=== PATIENT | female | born 1945 | race Caucasian/White ===

== ENCOUNTER 2020-05-30 11:11 | Inpatient (IN) | payer OTHER ==
[2020-05-30 12:38] LABS: BASO % 0.6 % (0-2.0); EOS % 0.6 % (0-4.5); HEMATOCRIT 37.6 % (32.4-45.2); MCHC 31.9 g/dl (32.0-36.0); MEAN CELL VOLUME 81.5 fl (80-96); MEAN PLT VOLUME 8.7 fl (7.5-11.1); MONO % 6.9 % (3.8-10.2); NEUT % 77.9 % (42.8-82.8); PLATELET COUNT 129 K/MM3 (134-434); RBC 4.62 M/mm3 (3.60-5.2); RDW 14.3 % (11.6-15.6); WHITE BLOOD COUNT 5.1 K/mm3 (4.0-10.0)
[2020-05-30 12:52] LABS: CHLORIDE 108 mmol/L (98-107); SODIUM 141 mmol/L (136-145)
[2020-05-30 12:54] LABS: CALCIUM 8.3 mg/dL (8.5-10.1)
[2020-05-30 12:55] LABS: ALBUMIN 3.6 g/dl (3.4-5.0); ANION GAP 6 MMOL/L (8-16); BLOOD UREA NITROGEN 16.4 mg/dL (7-18); CO2 26 mmol/L (21-32); GLUCOSE,RANDOM 153 mg/dL (74-106)
[2020-05-30 12:59] LABS: CREATININE 0.8 mg/dL (0.55-1.3); SGOT/AST 33 U/L (15-37); SGPT/ALT 26 U/L (13-61)
[2020-05-30 13:00] LABS: BILIRUBIN,TOTAL 0.2 mg/dL (0.2-1); TOT PROT 6.6 g/dl (6.4-8.2)
[2020-05-30 13:01] LABS: ALK PHOS 47 U/L (45-117)
[2020-05-30] MEDS ORDERED: DEXAMETHASONE SOD PHOSPHATE 10 MG/1 ML VIAL IVPUSH ONE (14:09)
[2020-05-30] MEDS ORDERED: DEXAMETHASONE SOD PHOSPHATE 10 MG/1 ML VIAL ONE (14:10)
[2020-05-31] MEDS: INSULIN SLIDING SCALE (NOVOLOG) 1 VIAL SQ SCH ×3 (06:22→18:59)
[2020-05-31 08:19] LABS: BASO % 0.2 % (0-2.0); HEMATOCRIT 37.6 % (32.4-45.2); HEMOGLOBIN 12.5 GM/dL (10.7-15.3); LYMPH % 23.6 % (8-40); MCH 26.6 pg (25.7-33.7); MCHC 33.1 g/dl (32.0-36.0); MEAN CELL VOLUME 80.2 fl (80-96); MEAN PLT VOLUME 8.2 fl (7.5-11.1); NEUT % 66.2 % (42.8-82.8); PLATELET COUNT 143 K/MM3 (134-434); RBC 4.69 M/mm3 (3.60-5.2); RDW 14.6 % (11.6-15.6); WHITE BLOOD COUNT 4.3 K/mm3 (4.0-10.0)
[2020-05-31 08:31] LABS: CHLORIDE 107 mmol/L (98-107); SODIUM 141 mmol/L (136-145)
[2020-05-31 08:33] LABS: ALBUMIN 3.3 g/dl (3.4-5.0); ANION GAP 5 MMOL/L (8-16); BLOOD UREA NITROGEN 17.9 mg/dL (7-18); CALCIUM 8.8 mg/dL (8.5-10.1); CO2 29 mmol/L (21-32); GLUCOSE,RANDOM 191 mg/dL (74-106)
[2020-05-31 08:36] LABS: CREATININE 0.7 mg/dL (0.55-1.3); SGOT/AST 29 U/L (15-37); SGPT/ALT 27 U/L (13-61)
[2020-05-31 08:38] LABS: BILIRUBIN,TOTAL 0.3 mg/dL (0.2-1)
[2020-05-31 08:39] LABS: ALK PHOS 49 U/L (45-117)
[2020-05-31] MEDS ORDERED: ENOXAPARIN NA (PORCINE) 40 MG/0.4 ML DISP.SYRIN SQ ONE (09:27)
[2020-05-31] MEDS: ENOXAPARIN NA (PORCINE) 40 MG/0.4 ML DISP.SYRIN SQ SCH (10:23)
[2020-06-01] MEDS: ROSUVASTATIN CA 20 MG TABLET (FP) PO SCH ×2 (00:51→22:11)
[2020-06-01] MEDS: INSULIN SLIDING SCALE (NOVOLOG) 1 VIAL SQ SCH ×5 (01:03→22:14)
[2020-06-01 09:20] LABS: BASO % 0.3 % (0-2.0); EOS % 0.2 % (0-4.5); HEMATOCRIT 35.5 % (32.4-45.2); HEMOGLOBIN 11.9 GM/dL (10.7-15.3); MCH 26.7 pg (25.7-33.7); MCHC 33.5 g/dl (32.0-36.0); MEAN CELL VOLUME 79.7 fl (80-96); MEAN PLT VOLUME 8.6 fl (7.5-11.1); MONO % 6.5 % (3.8-10.2); PLATELET COUNT 159 K/MM3 (134-434); RBC 4.45 M/mm3 (3.60-5.2)
[2020-06-01 10:02] LABS: CALCIUM 8.3 mg/dL (8.5-10.1)
[2020-06-01 10:05] LABS: CREATININE 0.6 mg/dL (0.55-1.3)
[2020-06-01 10:07] LABS: BILIRUBIN,TOTAL 0.3 mg/dL (0.2-1); TOT PROT 6.5 g/dl (6.4-8.2)
[2020-06-01] MEDS: ENOXAPARIN NA (PORCINE) 40 MG/0.4 ML DISP.SYRIN SQ SCH (10:07)
[2020-06-01] MEDS: DEXAMETHASONE SOD PHOSPHATE 4 MG/1 ML VIAL IVPUSH SCH (11:46)
[2020-06-01] MEDS ORDERED: REMDESIVIR 200 MG in SODIUM CHLORIDE 250 ML IVPB ONE (13:00)
[2020-06-01] MEDS ORDERED: THROMBIN (BOVINE) 5,000 UNIT VIAL TP ONE (15:30)
[2020-06-02] MEDS: INSULIN SLIDING SCALE (NOVOLOG) 1 VIAL SQ SCH ×4 (06:46→22:04)
[2020-06-02] MEDS: DEXAMETHASONE SOD PHOSPHATE 4 MG/1 ML VIAL IVPUSH SCH (10:11)
[2020-06-02] MEDS: ENOXAPARIN NA (PORCINE) 40 MG/0.4 ML DISP.SYRIN SQ SCH (10:12)
[2020-06-02] MEDS: REMDESIVIR 100 MG in SODIUM CHLORIDE 250 ML IVPB SCH (13:36)
[2020-06-02] MEDS: MELATONIN 5 MG TABLETS PO PRN (21:56)
[2020-06-02] MEDS: ROSUVASTATIN CA 20 MG TABLET (FP) PO SCH (21:56)
[2020-06-03] MEDS: INSULIN SLIDING SCALE (NOVOLOG) 1 VIAL SQ SCH ×4 (06:38→21:07)
[2020-06-03] MEDS ORDERED: INSULIN (NOVOLOG) ASPART 100 UNITS/ML 10ML VIAL ONE (06:52)
[2020-06-03 07:43] LABS: BASO % 0.1 % (0-2.0); EOS % 0.1 % (0-4.5); HEMATOCRIT 35.6 % (32.4-45.2); HEMOGLOBIN 11.7 GM/dL (10.7-15.3); MCH 26.5 pg (25.7-33.7); MCHC 32.9 g/dl (32.0-36.0); MEAN CELL VOLUME 80.6 fl (80-96); MEAN PLT VOLUME 8.4 fl (7.5-11.1); MONO % 11.5 % (3.8-10.2); NEUT % 65.3 % (42.8-82.8); PLATELET COUNT 176 K/MM3 (134-434); RBC 4.42 M/mm3 (3.60-5.2); RDW 14.2 % (11.6-15.6); WHITE BLOOD COUNT 5.4 K/mm3 (4.0-10.0)
[2020-06-03 08:07] LABS: ALBUMIN 2.9 g/dl (3.4-5.0); BLOOD UREA NITROGEN 16.4 mg/dL (7-18)
[2020-06-03 08:11] LABS: CREATININE 0.6 mg/dL (0.55-1.3)
[2020-06-03 08:12] LABS: BILIRUBIN,TOTAL 0.3 mg/dL (0.2-1)
[2020-06-03 08:14] LABS: TOT PROT 6.6 g/dl (6.4-8.2)
[2020-06-03] MEDS: ENOXAPARIN NA (PORCINE) 40 MG/0.4 ML DISP.SYRIN SQ SCH (11:23)
[2020-06-03] MEDS: DEXAMETHASONE SOD PHOSPHATE 4 MG/1 ML VIAL IVPUSH SCH (11:23)
[2020-06-03] MEDS: REMDESIVIR 100 MG in SODIUM CHLORIDE 250 ML IVPB SCH (13:52)
[2020-06-03] MEDS: ROSUVASTATIN CA 20 MG TABLET (FP) PO SCH (21:07)
[2020-06-03] MEDS: MELATONIN 5 MG TABLETS PO PRN (21:07)
[2020-06-04] MEDS: INSULIN SLIDING SCALE (NOVOLOG) 1 VIAL SQ SCH ×4 (06:28→21:35)
[2020-06-04] MEDS: DEXAMETHASONE SOD PHOSPHATE 4 MG/1 ML VIAL IVPUSH SCH (09:44)
[2020-06-04] MEDS: LISINOPRIL 5 MG TABLET PO SCH (09:45)
[2020-06-04] MEDS: ENOXAPARIN NA (PORCINE) 40 MG/0.4 ML DISP.SYRIN SQ SCH (09:45)
[2020-06-04] MEDS: REMDESIVIR 100 MG in SODIUM CHLORIDE 250 ML IVPB SCH (13:00)
[2020-06-04] MEDS: ROSUVASTATIN CA 20 MG TABLET (FP) PO SCH (21:29)
[2020-06-05] MEDS: INSULIN SLIDING SCALE (NOVOLOG) 1 VIAL SQ SCH ×4 (06:48→21:56)
[2020-06-05] MEDS: LISINOPRIL 5 MG TABLET PO SCH (09:13)
[2020-06-05] MEDS: DEXAMETHASONE SOD PHOSPHATE 4 MG/1 ML VIAL IVPUSH SCH (09:13)
[2020-06-05] MEDS: ENOXAPARIN NA (PORCINE) 40 MG/0.4 ML DISP.SYRIN SQ SCH (09:14)
[2020-06-05] MEDS ORDERED: INSULIN (NOVOLOG) ASPART 100 UNITS/ML 10ML VIAL ONE ×2 (11:32→18:21)
[2020-06-05] MEDS: REMDESIVIR 100 MG in SODIUM CHLORIDE 250 ML IVPB SCH (12:56)
[2020-06-05] MEDS: ROSUVASTATIN CA 20 MG TABLET (FP) PO SCH (21:56)
[2020-06-06] MEDS: INSULIN SLIDING SCALE (NOVOLOG) 1 VIAL SQ SCH ×4 (06:35→21:06)
[2020-06-06 07:06] LABS: BASO % 0.1 % (0-2.0); EOS % 0.1 % (0-4.5); HEMATOCRIT 38.4 % (32.4-45.2); HEMOGLOBIN 12.8 GM/dL (10.7-15.3); LYMPH % 20.2 % (8-40); MCH 27.6 pg (25.7-33.7); MCHC 33.3 g/dl (32.0-36.0); MEAN CELL VOLUME 82.9 fl (80-96); MEAN PLT VOLUME 8.2 fl (7.5-11.1); NEUT % 70.6 % (42.8-82.8); PLATELET COUNT 250 K/MM3 (134-434); RBC 4.63 M/mm3 (3.60-5.2); WHITE BLOOD COUNT 7.1 K/mm3 (4.0-10.0)
[2020-06-06 07:31] LABS: ALBUMIN 2.8 g/dl (3.4-5.0)
[2020-06-06 07:32] LABS: BLOOD UREA NITROGEN 18.3 mg/dL (7-18)
[2020-06-06 07:35] LABS: CREATININE 0.7 mg/dL (0.55-1.3)
[2020-06-06 07:36] LABS: TOT PROT 6.5 g/dl (6.4-8.2)
[2020-06-06 07:37] LABS: BILIRUBIN,TOTAL 0.4 mg/dL (0.2-1)
[2020-06-06] MEDS: ENOXAPARIN NA (PORCINE) 40 MG/0.4 ML DISP.SYRIN SQ SCH (09:33)
[2020-06-06] MEDS: DEXAMETHASONE SOD PHOSPHATE 4 MG/1 ML VIAL IVPUSH SCH (09:33)
[2020-06-06] MEDS: LISINOPRIL 5 MG TABLET PO SCH (09:34)
[2020-06-06] MEDS ORDERED: INSULIN (NOVOLOG) ASPART 100 UNITS/ML 10ML VIAL ONE ×2 (10:34→16:25)
[2020-06-06] MEDS ORDERED: LISINOPRIL 5 MG TABLET PO SCH (14:09)
[2020-06-06] MEDS ORDERED: LISINOPRIL 5 MG TABLET PO ONE ×2 (14:09→14:13)
[2020-06-06] MEDS: amLODIPine BESYLATE 2.5 MG TABLET (FP) PO SCH (14:20)
[2020-06-06 19:44] VITALS: BMI 28.5
[2020-06-06] MEDS: ROSUVASTATIN CA 20 MG TABLET (FP) PO SCH (21:06)
[2020-06-07] MEDS: INSULIN SLIDING SCALE (NOVOLOG) 1 VIAL SQ SCH ×4 (07:08→21:31)
[2020-06-07] MEDS: DEXAMETHASONE SOD PHOSPHATE 4 MG/1 ML VIAL IVPUSH SCH (09:36)
[2020-06-07] MEDS: LISINOPRIL 5 MG TABLET PO SCH (09:36)
[2020-06-07] MEDS: amLODIPine BESYLATE 2.5 MG TABLET (FP) PO SCH (09:37)
[2020-06-07] MEDS: MELATONIN 5 MG TABLETS PO PRN (21:30)
[2020-06-07] MEDS: ROSUVASTATIN CA 20 MG TABLET (FP) PO SCH (21:30)
[2020-06-08] MEDS: INSULIN SLIDING SCALE (NOVOLOG) 1 VIAL SQ SCH ×4 (06:14→22:56)
[2020-06-08] MEDS: DEXAMETHASONE SOD PHOSPHATE 4 MG/1 ML VIAL IVPUSH SCH (09:22)
[2020-06-08] MEDS: LISINOPRIL 5 MG TABLET PO SCH (09:22)
[2020-06-08] MEDS: amLODIPine BESYLATE 2.5 MG TABLET (FP) PO SCH (09:22)
[2020-06-08] MEDS: metFORMIN HCL 500 MG TABLET (FP) PO SCH (22:48)
[2020-06-08] MEDS: ROSUVASTATIN CA 20 MG TABLET (FP) PO SCH (22:48)
[2020-06-08] MEDS ORDERED: INSULIN (LEVEMIR) 100 UNITS/ML UNITS SQ ONE (23:00)
[2020-06-09] MEDS: metFORMIN HCL 500 MG TABLET (FP) PO SCH ×2 (06:15→16:39)
[2020-06-09] MEDS: INSULIN SLIDING SCALE (NOVOLOG) 1 VIAL SQ SCH ×4 (06:15→21:53)
[2020-06-09 06:57] LABS: BASO % 0.1 % (0-2.0); EOS % 0.5 % (0-4.5); HEMOGLOBIN 13.1 GM/dL (10.7-15.3); LYMPH % 11.1 % (8-40); MCH 27.6 pg (25.7-33.7); MCHC 32.7 g/dl (32.0-36.0); MEAN CELL VOLUME 84.2 fl (80-96); MEAN PLT VOLUME 8.3 fl (7.5-11.1); MONO % 8.8 % (3.8-10.2); NEUT % 79.5 % (42.8-82.8); PLATELET COUNT 284 K/MM3 (134-434); RBC 4.74 M/mm3 (3.60-5.2); RDW 14.5 % (11.6-15.6); WHITE BLOOD COUNT 10.2 K/mm3 (4.0-10.0)
[2020-06-09 07:10] LABS: CALCIUM 9.7 mg/dL (8.5-10.1)
[2020-06-09 07:11] LABS: ALBUMIN 2.9 g/dl (3.4-5.0); BLOOD UREA NITROGEN 24.6 mg/dL (7-18)
[2020-06-09 07:15] LABS: BILIRUBIN,TOTAL 0.2 mg/dL (0.2-1)
[2020-06-09] MEDS: LISINOPRIL 5 MG TABLET PO SCH (09:25)
[2020-06-09] MEDS: DEXAMETHASONE SOD PHOSPHATE 4 MG/1 ML VIAL IVPUSH SCH (09:25)
[2020-06-09] MEDS: amLODIPine BESYLATE 2.5 MG TABLET (FP) PO SCH (09:27)
[2020-06-09] MEDS ORDERED: INSULIN (NOVOLOG) ASPART 100 UNITS/ML 10ML VIAL ONE ×2 (16:47→20:58)
[2020-06-09] MEDS: ROSUVASTATIN CA 20 MG TABLET (FP) PO SCH (21:52)
[2020-06-09] MEDS: INSULIN (LEVEMIR) 100 UNITS/ML UNITS SQ SCH (21:52)
[2020-06-10] MEDS: metFORMIN HCL 500 MG TABLET (FP) PO SCH ×2 (06:12→16:56)
[2020-06-10] MEDS: INSULIN SLIDING SCALE (NOVOLOG) 1 VIAL SQ SCH ×3 (06:12→16:56)
[2020-06-10] MEDS ORDERED: sitaGLIPtin PHOSPHATE 50 MG TABLET PO SCH (07:00)
[2020-06-10] MEDS: LISINOPRIL 5 MG TABLET PO SCH (10:42)
[2020-06-10] MEDS: DEXAMETHASONE SOD PHOSPHATE 4 MG/1 ML VIAL IVPUSH SCH (10:43)
[2020-06-10] MEDS: amLODIPine BESYLATE 2.5 MG TABLET (FP) PO SCH (10:43)
[2020-06-10] MEDS: INSULIN (LEVEMIR) 100 UNITS/ML UNITS SQ SCH (12:16)
[2020-06-10 19:07] VITALS: BP 166/91; PULSE 101; TEMP 98.1
== END 2020-06-10 21:27 | disposition home or self-care (01) | DRG 177 ==
LOC: EDBD 11:11 → JER 11:11 → OBSVTOIN 12:10 → JERBED 12:10 → J6WEST-2 06-01 00:36 → J4W 06-01 17:34
PROVIDERS: ADMIT Internal Medicine; ATTEND Internal Medicine
PROC: XW033E5 Introduction of Remdesivir Anti-infective into Peripheral Vein, Percutaneous Approach, New Technology Group 5 (ICD-10-PCS; 2020-06-01)
PROC: XW13325 Transfusion of Convalescent Plasma (Nonautologous) into Peripheral Vein, Percutaneous Approach, New Technology Group 5 (ICD-10-PCS; principal; 2020-06-02)
DX: U07.1 COVID-19 (principal); J96.01 Acute respiratory failure with hypoxia; E66.9 Obesity, unspecified; Z68.28 Body mass index [BMI] 28.0-28.9, adult; E11.9 Type 2 diabetes mellitus without complications; Z79.84 Long term (current) use of oral hypoglycemic drugs; R55 Syncope and collapse; I10 Essential (primary) hypertension
CPT/HCPCS: 36415; 36430; 70450-TC; 71045-TC-FY; 80053; 80061; 82550; 82553; 82607; 82728; 82746; 82962; 83036; 83721; 84443; 84484; 85025; 85379; 86140; 86769; 86850; 86900; 86901; 87804; 93005; 93010; 93306-TC; 93880-TC; 94761; 97116-GP; 97162-GP; 99285-25; C9399; C9803; J1100; P9017; U0003; U0005

== ENCOUNTER 2021-12-30 12:48 | Inpatient (IN) | payer OTHER ==
[2021-12-30] MEDS ORDERED: ACETAMINOPHEN 1000 MG/100 ML BAG IVPB ONE (14:36)
[2021-12-30] MEDS ORDERED: ACETAMINOPHEN INJECTION 100 ML IVPB ONE (15:15)
[2021-12-30 15:51] LABS: BASO % 0.5 % (0-2.0); HEMATOCRIT 36.4 % (32.4-45.2); HEMOGLOBIN 11.7 GM/dL (10.7-15.3); LYMPH % 12.2 % (8-40); MCH 26.7 pg (25.7-33.7); MCHC 32.2 g/dl (32.0-36.0); MEAN CELL VOLUME 83.1 fl (80-96); MEAN PLT VOLUME 8.5 fl (7.5-11.1); MONO % 10.8 % (3.8-10.2); NEUT % 76.5 % (42.8-82.8); PLATELET COUNT 187 10^3/uL (134-434); RBC 4.38 M/mm3 (3.60-5.2); RDW 13.7 % (11.6-15.6); WHITE BLOOD COUNT 9.2 K/mm3 (4.0-10.0)
[2021-12-30 16:02] LABS: ACTIVATED PTT 28.5 SECONDS (25.2-36.5); INR 1.13 (0.83-1.09)
[2021-12-30 16:20] LABS: ALBUMIN 3.8 g/dl (3.4-5.0); CALCIUM 9.4 mg/dL (8.5-10.1)
[2021-12-30 16:23] LABS: CREATININE 1.1 mg/dL (0.55-1.3)
[2021-12-30 16:25] LABS: BILIRUBIN,TOTAL 0.5 mg/dL (0.2-1); TOT PROT 7.4 g/dl (6.4-8.2)
[2021-12-31] MEDS ORDERED: ACETAMINOPHEN 325 MG TABLET (FP) PO PRN (06:30)
[2021-12-31] MEDS ORDERED: metFORMIN HCL 500 MG TABLET (FP) ONE (07:11)
[2021-12-31] MEDS: metFORMIN HCL 500 MG TABLET (FP) PO SCH (07:12)
[2021-12-31 07:24] LABS: BASO % 0.6 % (0-2.0); EOS % 0.2 % (0-4.5); HEMATOCRIT 36.9 % (32.4-45.2); HEMOGLOBIN 11.9 GM/dL (10.7-15.3); LYMPH % 8.7 % (8-40); MCH 26.7 pg (25.7-33.7); MCHC 32.2 g/dl (32.0-36.0); MEAN CELL VOLUME 82.8 fl (80-96); MEAN PLT VOLUME 7.9 fl (7.5-11.1); MONO % 9.2 % (3.8-10.2); NEUT % 81.3 % (42.8-82.8); PLATELET COUNT 175 10^3/uL (134-434); RBC 4.46 M/mm3 (3.60-5.2); RDW 13.9 % (11.6-15.6); WHITE BLOOD COUNT 10.1 K/mm3 (4.0-10.0)
[2021-12-31 07:50] LABS: CALCIUM 9.3 mg/dL (8.5-10.1)
[2021-12-31 07:51] LABS: BLOOD UREA NITROGEN 19.8 mg/dL (7-18)
[2021-12-31 07:54] LABS: CREATININE 0.7 mg/dL (0.55-1.3)
[2021-12-31] MEDS ORDERED: REMDESIVIR 200 MG in SODIUM CHLORIDE 250 ML IVPB ONE ×2 (08:35→10:00)
[2021-12-31] MEDS ORDERED: methylPREDNISolone NA SUCC 40 MG/1 ML VIAL IVPB ONE (08:35)
[2021-12-31] MEDS ORDERED: LISINOPRIL 10 MG TABLET ONE (10:12)
[2021-12-31] MEDS ORDERED: methylPREDNISolone NA SUCC 40 MG/1 ML VIAL ONE (10:13)
[2021-12-31] MEDS: LISINOPRIL 10 MG TABLET PO SCH (10:40)
[2021-12-31] MEDS ORDERED: ROSUVASTATIN CA 20 MG TABLET PO SCH (22:00)
[2022-01-01] MEDS ORDERED: metFORMIN HCL 500 MG TABLET (FP) ONE ×2 (05:50→08:08)
[2022-01-01] MEDS ORDERED: ACETAMINOPHEN 325 MG TABLET (FP) ONE (05:59)
[2022-01-01] MEDS: metFORMIN HCL 500 MG TABLET (FP) PO SCH (08:13)
[2022-01-01] MEDS ORDERED: FLU VACC QS2022-23(6MOS UP)/PF 60 MCG/0.5 ML SYRINGE IM ONE (09:00)
[2022-01-01] MEDS ORDERED: PNEUMOC 20-VAL CONJ-DIP CRM/PF 0.5 ML SYRINGE IM ONE (09:00)
[2022-01-01] MEDS ORDERED: LISINOPRIL 10 MG TABLET ONE (09:39)
[2022-01-01] MEDS: LISINOPRIL 10 MG TABLET PO SCH (09:54)
[2022-01-01] MEDS: REMDESIVIR 100 MG in SODIUM CHLORIDE 250 ML IVPB SCH (10:38)
[2022-01-02 07:32] LABS: BASO % 0.3 % (0-2.0); EOS % 1.5 % (0-4.5); HEMATOCRIT 35.2 % (32.4-45.2); HEMOGLOBIN 11.7 GM/dL (10.7-15.3); LYMPH % 21.5 % (8-40); MCH 27.4 pg (25.7-33.7); MCHC 33.1 g/dl (32.0-36.0); MEAN CELL VOLUME 82.6 fl (80-96); MEAN PLT VOLUME 7.8 fl (7.5-11.1); MONO % 8.2 % (3.8-10.2); NEUT % 68.5 % (42.8-82.8); PLATELET COUNT 200 10^3/uL (134-434); RBC 4.26 M/mm3 (3.60-5.2); RDW 14.2 % (11.6-15.6); WHITE BLOOD COUNT 9.7 K/mm3 (4.0-10.0)
[2022-01-02] MEDS ORDERED: metFORMIN HCL 500 MG TABLET (FP) ONE (08:03)
[2022-01-02] MEDS: metFORMIN HCL 500 MG TABLET (FP) PO SCH (08:07)
[2022-01-02] MEDS: REMDESIVIR 100 MG in SODIUM CHLORIDE 250 ML IVPB SCH (09:14)
[2022-01-02] MEDS: LISINOPRIL 10 MG TABLET PO SCH (09:14)
[2022-01-03] MEDS: metFORMIN HCL 500 MG TABLET (FP) PO SCH (06:07)
[2022-01-03 08:36] LABS: BASO % 0.4 % (0-2.0); EOS % 2.4 % (0-4.5); HEMATOCRIT 36.2 % (32.4-45.2); HEMOGLOBIN 11.7 GM/dL (10.7-15.3); LYMPH % 31.1 % (8-40); MCH 26.9 pg (25.7-33.7); MCHC 32.5 g/dl (32.0-36.0); MEAN CELL VOLUME 82.9 fl (80-96); MEAN PLT VOLUME 7.8 fl (7.5-11.1); MONO % 10.4 % (3.8-10.2); NEUT % 55.7 % (42.8-82.8); PLATELET COUNT 205 10^3/uL (134-434); RBC 4.36 M/mm3 (3.60-5.2); WHITE BLOOD COUNT 7.1 K/mm3 (4.0-10.0)
[2022-01-03 09:07] LABS: BLOOD UREA NITROGEN 24.8 mg/dL (7-18); CREATININE 0.8 mg/dL (0.55-1.3)
[2022-01-03 09:09] LABS: CALCIUM 9.2 mg/dL (8.5-10.1)
[2022-01-03] MEDS: LISINOPRIL 10 MG TABLET PO SCH (10:13)
[2022-01-03] MEDS: REMDESIVIR 100 MG in SODIUM CHLORIDE 250 ML IVPB SCH (10:13)
[2022-01-04] MEDS: metFORMIN HCL 500 MG TABLET (FP) PO SCH (06:11)
[2022-01-04 07:44] LABS: BASO % 0.5 % (0-2.0); HEMATOCRIT 36.1 % (32.4-45.2); HEMOGLOBIN 11.6 GM/dL (10.7-15.3); LYMPH % 25.5 % (8-40); MCH 26.4 pg (25.7-33.7); MCHC 32.1 g/dl (32.0-36.0); MEAN CELL VOLUME 82.4 fl (80-96); MEAN PLT VOLUME 7.6 fl (7.5-11.1); MONO % 8.6 % (3.8-10.2); NEUT % 62.4 % (42.8-82.8); PLATELET COUNT 221 10^3/uL (134-434); RBC 4.38 M/mm3 (3.60-5.2); RDW 13.8 % (11.6-15.6)
[2022-01-04 07:54] LABS: BLOOD UREA NITROGEN 21.2 mg/dL (7-18); CALCIUM 9.1 mg/dL (8.5-10.1)
[2022-01-04 07:58] LABS: CREATININE 0.7 mg/dL (0.55-1.3)
[2022-01-04] MEDS: LISINOPRIL 10 MG TABLET PO SCH (10:03)
[2022-01-04] MEDS: ZOLPIDEM TARTRATE 5 MG TABLET PO PRN (21:41)
[2022-01-05] MEDS: metFORMIN HCL 500 MG TABLET (FP) PO SCH (06:49)
[2022-01-05] MEDS: LISINOPRIL 10 MG TABLET PO SCH (09:09)
[2022-01-05] MEDS: DEXAMETHASONE SOD PHOSPHATE 4 MG/1 ML VIAL IVPUSH SCH (13:00)
[2022-01-05] MEDS ORDERED: DEXAMETHASONE SOD PHOSPHATE 4 MG/1 ML VIAL IVPUSH SCH (15:00)
[2022-01-05 15:31] VITALS: BMI 25.0
[2022-01-05] MEDS: ZOLPIDEM TARTRATE 5 MG TABLET PO PRN (21:44)
[2022-01-06 01:35] VITALS: RESP 18
[2022-01-06] MEDS: metFORMIN HCL 500 MG TABLET (FP) PO SCH (06:15)
[2022-01-06 08:00] LABS: BASO % 0.3 % (0-2.0); EOS % 0.2 % (0-4.5); HEMATOCRIT 34.4 % (32.4-45.2); HEMOGLOBIN 11.5 GM/dL (10.7-15.3); LYMPH % 22.2 % (8-40); MCH 27.2 pg (25.7-33.7); MCHC 33.5 g/dl (32.0-36.0); MEAN CELL VOLUME 81.4 fl (80-96); MEAN PLT VOLUME 7.4 fl (7.5-11.1); MONO % 7.6 % (3.8-10.2); NEUT % 69.7 % (42.8-82.8); PLATELET COUNT 237 10^3/uL (134-434); RBC 4.23 M/mm3 (3.60-5.2); RDW 13.5 % (11.6-15.6); WHITE BLOOD COUNT 7.8 K/mm3 (4.0-10.0)
[2022-01-06 08:54] LABS: CALCIUM 9.6 mg/dL (8.5-10.1)
[2022-01-06 08:56] LABS: BLOOD UREA NITROGEN 21.2 mg/dL (7-18)
[2022-01-06 08:59] LABS: CREATININE 0.8 mg/dL (0.55-1.3)
[2022-01-06] MEDS: LISINOPRIL 10 MG TABLET PO SCH (09:15)
[2022-01-06] MEDS: DEXAMETHASONE SOD PHOSPHATE 4 MG/1 ML VIAL IVPUSH SCH (09:16)
[2022-01-06] MEDS ORDERED: ENOXAPARIN NA (PORCINE) 40 MG/0.4 ML DISP.SYRIN SQ SCH (10:00)
[2022-01-06 13:37] VITALS: PULSE 83; TEMP 97.7
[2022-01-06 13:39] VITALS: BP 110/69
== END 2022-01-06 18:27 | disposition home or self-care (01) | DRG 178 ==
LOC: JER 12:48 → JERBED 17:17 → OBSVTOIN 17:17 → J4S 01-03 02:55
PROVIDERS: ADMIT Family Medicine; ATTEND Family Medicine
PROC: XW033E5 Introduction of Remdesivir Anti-infective into Peripheral Vein, Percutaneous Approach, New Technology Group 5 (ICD-10-PCS; principal; 2021-12-31)
PROC: 3E0333Z Introduction of Anti-inflammatory into Peripheral Vein, Percutaneous Approach (ICD-10-PCS; 2022-01-05)
DX: U07.1 COVID-19 (principal); G95.89 Other specified diseases of spinal cord; E78.5 Hyperlipidemia, unspecified; I10 Essential (primary) hypertension; E11.9 Type 2 diabetes mellitus without complications; F79 Unspecified intellectual disabilities; R09.02 Hypoxemia; W18.30XA Fall on same level, unspecified, initial encounter; Y92.098 Other place in other non-institutional residence as the place of occurrence of the external cause
CPT/HCPCS: 0241U-QW; 36415; 70450-TC; 70551-TC; 71045-TC-FY; 71275-TC; 72125-TC; 72128-TC; 72131-TC; 72141-TC; 80048; 80053; 82962; 84484; 85025; 85379; 85610; 85730; 86140; 90677; 93005; 93010; 93970-TC; 94761; 97116-GP; 97161-GP; 99285-25; C9399; G0008; Q2036; Q9967

== ENCOUNTER 2023-06-01 12:19 | Inpatient (IN) | payer OTHER ==
[2023-06-01 13:38] LABS: VENOUS BASE EXCESS -2.8 mmol/L (-2-2); VENOUS O2 SATURATION 38.7 % (70-80); VENOUS PCO2 48.5 mmHg (38-52); VENOUS PH 7.309 (7.310-7.410)
[2023-06-01 13:38] LABS: BASO % 0.3 % (0-2.0); HEMATOCRIT 36.3 % (32.4-45.2); HEMOGLOBIN 11.9 GM/dL (10.7-15.3); LYMPH % 11.7 % (8-40); MCH 26.6 pg (25.7-33.7); MCHC 32.7 g/dl (32.0-36.0); MEAN CELL VOLUME 81.3 fl (80-96); MEAN PLT VOLUME 7.7 fl (7.5-11.1); MONO % 14.7 % (3.8-10.2); NEUT % 73.3 % (42.8-82.8); PLATELET COUNT 184 10^3/uL (134-434); RBC 4.46 M/mm3 (3.60-5.2); RDW 14.6 % (11.6-15.6); WHITE BLOOD COUNT 7.1 K/mm3 (4.0-10.0)
[2023-06-01 13:51] LABS: INR 1.17 (0.83-1.09); PROTHROMBIN TIME (PATIENT) 13.6 SEC (9.7-13.0)
[2023-06-01 13:52] LABS: ACTIVATED PTT 29.2 SECONDS (25.2-36.5)
[2023-06-01 14:00] LABS: POTASSIUM 4.6 mmol/L (3.5-5.1)
[2023-06-01] MEDS: SODIUM CHLORIDE 1,633 ML IV ONE (14:02)
[2023-06-01 14:03] LABS: ALBUMIN 3.7 g/dl (3.4-5.0)
[2023-06-01 14:04] LABS: CALCIUM 10.2 mg/dL (8.5-10.1)
[2023-06-01 14:05] LABS: BLOOD UREA NITROGEN 20.5 mg/dL (7-18)
[2023-06-01 14:07] LABS: CREATININE 1.4 mg/dL (0.55-1.3)
[2023-06-01 14:09] LABS: BILIRUBIN,TOTAL 0.5 mg/dL (0.2-1); TOT PROT 7.6 g/dl (6.4-8.2)
[2023-06-01] MEDS ORDERED: ACETAMINOPHEN 325 MG TABLET (FP) ONE (15:30)
[2023-06-01] MEDS ORDERED: LIDOCAINE 4% PATCH TP ONE (15:31)
[2023-06-01] MEDS: ACETAMINOPHEN 325 MG TABLET (FP) PO ONE (15:48)
[2023-06-01] MEDS: LIDOCAINE 5% TOPICAL PATCH TP ONE (15:48)
[2023-06-01 18:06] LABS: EPI CELLS >36 /uL (0-25.1); HYALINE CASTS 16 /uL (0-3.1); PH,URINE 5.5 (5.0-8.0); URINE APPEARANCE CLOUDY; URINE BACTERIA 1 /uL (0-1359); URINE BILIRUBIN NEGATIVE (NEGATIVE); URINE COLOR YELLOW; URINE GLUCOSE (UA) NEGATIVE (NEGATIVE); URINE KETONE TRACE (NEGATIVE); URINE LEUK ESTERASE NEGATIVE (NEGATIVE); URINE NITRITE NEGATIVE (NEGATIVE); URINE PROTEIN 2+ (NEGATIVE); URINE RBC 5 /uL (0-23.9)
[2023-06-01] MEDS ORDERED: DOCUSATE SODIUM 100 MG CAPSULE (FP) PO PRN (19:38)
[2023-06-01 20:31] LABS: MAGNESIUM 2.1 mg/dL (1.8-2.4)
[2023-06-01 20:34] LABS: PHOSPHOROUS 3.9 mg/dL (2.5-4.9)
[2023-06-01 20:48] LABS: URINE WBC 89.1 /uL (0-25.8)
[2023-06-01] MEDS: SODIUM CHLORIDE 0.45% 1,000 ML IV SCH (21:24)
[2023-06-01] MEDS: INSULIN ASPART SLIDING SCALE (NOVOLOG) 1 VIAL SQ SCH (21:25)
[2023-06-01] MEDS: LIDOCAINE PATCH REMOVAL MC SCH (22:54)
[2023-06-01] MEDS ORDERED: ACETAMINOPHEN INJECTION 100 ML IVPB ONE (23:25)
[2023-06-01] MEDS: ACETAMINOPHEN 1000 MG/100 ML BAG IVPB ONE (23:48)
[2023-06-02] MEDS ORDERED: LEVALBUTEROL HCL 0.63 MG/3 ML VIAL.NEB. IH ONE (01:37)
[2023-06-02] MEDS ORDERED: guaiFENesin/D-METHORPHAN HB 10 ML UNIT-DOSE CUPS ONE (01:37)
[2023-06-02] MEDS: guaiFENesin/D-METHORPHAN TAB.ER.12H PO ONE (01:43)
[2023-06-02] MEDS: LEVALBUTEROL HCL 0.63 MG/3 ML VIAL.NEB. IH ONE (01:43)
[2023-06-02 03:29] VITALS: BMI 23.2
[2023-06-02 06:53] LABS: BASO % 0.6 % (0-2.0); EOS % 2.5 % (0-4.5); HEMATOCRIT 32.6 % (32.4-45.2); HEMOGLOBIN 10.6 GM/dL (10.7-15.3); LYMPH % 20.1 % (8-40); MCH 26.7 pg (25.7-33.7); MCHC 32.6 g/dl (32.0-36.0); MEAN CELL VOLUME 81.9 fl (80-96); MONO % 17.1 % (3.8-10.2); NEUT % 59.7 % (42.8-82.8); PLATELET COUNT 151 10^3/uL (134-434); RBC 3.98 M/mm3 (3.60-5.2); RDW 14.1 % (11.6-15.6); WHITE BLOOD COUNT 5.2 K/mm3 (4.0-10.0)
[2023-06-02 07:34] LABS: POTASSIUM 3.7 mmol/L (3.5-5.1)
[2023-06-02 07:37] LABS: CALCIUM 8.7 mg/dL (8.5-10.1)
[2023-06-02 07:41] LABS: CREATININE 0.9 mg/dL (0.55-1.3)
[2023-06-02 07:42] LABS: BILIRUBIN,TOTAL 0.4 mg/dL (0.2-1)
[2023-06-02 07:43] LABS: TOT PROT 6.4 g/dl (6.4-8.2)
[2023-06-02 08:09] LABS: N-TERMINAL BNP 386.6 pg/ml (5-450)
[2023-06-02] MEDS ORDERED: ZOLPIDEM TARTRATE 5 MG TABLET PO PRN (08:24)
[2023-06-02] MEDS: LISINOPRIL 10 MG TABLET PO SCH (09:54)
[2023-06-02] MEDS: guaiFENesin/D-METHORPHAN TAB.ER.12H PO SCH (09:55)
[2023-06-02] MEDS: ACETAMINOPHEN 1000 MG/100 ML BAG IVPB ONE (21:53)
[2023-06-02] MEDS: ROSUVASTATIN CA 20 MG TABLET PO SCH (21:54)
[2023-06-02] MEDS: MELATONIN 5 MG TABLETS PO PRN (21:55)
[2023-06-03 07:17] LABS: BASO % 0.5 % (0-2.0); HEMATOCRIT 34.4 % (32.4-45.2); HEMOGLOBIN 11.1 GM/dL (10.7-15.3); LYMPH % 25.6 % (8-40); MCH 26.3 pg (25.7-33.7); MCHC 32.2 g/dl (32.0-36.0); MEAN CELL VOLUME 81.8 fl (80-96); MEAN PLT VOLUME 7.8 fl (7.5-11.1); MONO % 15.9 % (3.8-10.2); PLATELET COUNT 167 10^3/uL (134-434); RBC 4.21 M/mm3 (3.60-5.2); RDW 14.2 % (11.6-15.6); WHITE BLOOD COUNT 5.7 K/mm3 (4.0-10.0)
[2023-06-03 08:11] LABS: POTASSIUM 3.7 mmol/L (3.5-5.1)
[2023-06-03 08:16] LABS: ALBUMIN 3.1 g/dl (3.4-5.0); CALCIUM 9.4 mg/dL (8.5-10.1)
[2023-06-03 08:17] LABS: BLOOD UREA NITROGEN 11.7 mg/dL (7-18)
[2023-06-03 08:19] LABS: CREATININE 0.9 mg/dL (0.55-1.3)
[2023-06-03 08:21] LABS: BILIRUBIN,TOTAL 0.4 mg/dL (0.2-1); TOT PROT 6.8 g/dl (6.4-8.2)
[2023-06-04 08:11] LABS: BASO % 0.7 % (0-2.0); EOS % 2.6 % (0-4.5); HEMATOCRIT 32.8 % (32.4-45.2); HEMOGLOBIN 10.7 GM/dL (10.7-15.3); LYMPH % 27.6 % (8-40); MCH 26.4 pg (25.7-33.7); MCHC 32.5 g/dl (32.0-36.0); MEAN CELL VOLUME 81.2 fl (80-96); MEAN PLT VOLUME 7.9 fl (7.5-11.1); MONO % 16.3 % (3.8-10.2); NEUT % 52.8 % (42.8-82.8); PLATELET COUNT 198 10^3/uL (134-434); RBC 4.04 M/mm3 (3.60-5.2); RDW 14.2 % (11.6-15.6); WHITE BLOOD COUNT 8.2 K/mm3 (4.0-10.0)
[2023-06-04 08:31] LABS: POTASSIUM 3.8 mmol/L (3.5-5.1)
[2023-06-04 08:49] LABS: CREATININE 0.9 mg/dL (0.55-1.3)
[2023-06-04 08:50] LABS: TOT PROT 6.6 g/dl (6.4-8.2)
[2023-06-04 08:51] LABS: BILIRUBIN,TOTAL 0.3 mg/dL (0.2-1)
[2023-06-04] MEDS ORDERED: PIPERACILLIN/TAZOB 3.375 GM 3.375 GM in DEXTROSE 5%-WATER - 50 ML IVPB SCH (10:00)
[2023-06-04] MEDS: PIPERACILLIN/TAZOB 3.375 GM 3.375 GM in DEXTROSE 5%-WATER - 50 ML IVPB SCH (12:28)
[2023-06-04] MEDS: AZITHROMYCIN 250 MG TABLET PO ONE (18:30)
[2023-06-04] MEDS ORDERED: INSULIN (NOVOLOG) ASPART 100 UNITS/ML 10ML VIAL ONE (21:25)
[2023-06-05] MEDS: ALBUTEROL SO4 2.5/IPRATROPIUM 0.5 INH SOL 3 ML VIAL.NEB. NEB SCH (11:45)
[2023-06-05] MEDS: AZITHROMYCIN 250 MG TABLET PO SCH (17:27)
[2023-06-05] MEDS ORDERED: INSULIN (NOVOLOG) ASPART 100 UNITS/ML 10ML VIAL ONE (21:25)
[2023-06-06] MEDS ORDERED: INSULIN (NOVOLOG) ASPART 100 UNITS/ML 10ML VIAL ONE (11:45)
[2023-06-06] MEDS: ACETAMINOPHEN 325 MG TABLET (FP) PO PRN (12:42)
[2023-06-07 15:18] VITALS: BP 124/97; PULSE 81; RESP 19; TEMP 98.2
== END 2023-06-07 16:39 | disposition home or self-care (01) | DRG 202 ==
LOC: JER 12:19 → JERBED 16:59 → J4W 06-02 03:00 → OBSVTOIN 06-03 11:12
PROVIDERS: ADMIT Internal Medicine; ATTEND Family Medicine
DX: J20.9 Acute bronchitis, unspecified (principal); I24.89 Other forms of acute ischemic heart disease; S32.000A Wedge compression fracture of unspecified lumbar vertebra, initial encounter for closed fracture; J98.11 Atelectasis; E11.40 Type 2 diabetes mellitus with diabetic neuropathy, unspecified; E11.65 Type 2 diabetes mellitus with hyperglycemia; I10 Essential (primary) hypertension; E78.5 Hyperlipidemia, unspecified; R50.9 Fever, unspecified; W19.XXXA Unspecified fall, initial encounter; Y93.9 Activity, unspecified; Y92.89 Other specified places as the place of occurrence of the external cause; Y99.9 Unspecified external cause status; R00.0 Tachycardia, unspecified
CPT/HCPCS: 0241U-QW; 36415; 70450-TC; 71045-TC-FY; 71275-TC; 72131-TC; 72170-TC-FY; 80048; 80053; 81003; 82803; 82962; 83036; 83605; 83735; 83880; 84100; 84439; 84443; 84484; 85025; 85610; 85730; 86850; 86900; 86901; 87040; 87086; 87633; 87899; 93005; 93010; 93306-TC; 94640; 94761; 97116-GP; 97162-GP; 99285-25; G0378; J0131; Q9967